=== PATIENT | female | born 1940 | race African-American/Black ===

== ENCOUNTER 2017-05-03 19:41 | Emergency (ER) | payer MEDICARE, OTHER ==
[~2017-05-03] VITALS: Ht 165.1 cm; Wt 70.0 kg
[~2017-05-03 19:41] MED LIST: ATENOLOL50 MG PO; HCTZ 25MG25 MG PO; MOTRIN 800800 MG/TAB PO; NICODERM C14 MG/PATC TOP; POTASSIUM CH2 MEQ/ML PO; SYNTHROID0.05 MG PO; TYLENOL PM EXTR1 TA1 PO
[2017-05-03 19:50] VITALS: TEMP 98.5
[2017-05-03] MEDS ORDERED: SYNTHROID0.125 MG/T PO (19:54)
[2017-05-03] MEDS ORDERED: TYLENOL 8 HR PO (20:12)
[2017-05-03] MEDS ORDERED: MEDROL 4MG DOSPA4 MG PO (20:29)
[2017-05-03] MEDS ORDERED: NORCO 325 MG-51 TAB PO (20:29)
[2017-05-03 20:44] VITALS: BP 158/78; PULSE 70
== END 2017-05-03 21:12 | disposition home or self-care (01) ==
LOC: COL.ER 19:41
DX: M79.2 Neuralgia and neuritis, unspecified (principal); R51 Headache; I10 Essential (primary) hypertension
CPT/HCPCS: J7512

== ENCOUNTER 2019-01-23 02:14 | Inpatient (IN) | payer MEDICARE, OTHER ==
--- NOTE | 2019-01-22 04:45 | NUR ---
Pt arrived on medical floor to room 353 along with granddaughter. Pt transferred from bed to bed with standby assist. Pt has no c/o pain. Assessment completed. Dr. Greene will be consulted in the morning for this pt. Pt has been oriented to the room. No further concern. Call light and personal belongings within reach.
[~2019-01-23] VITALS: Ht 165.1 cm; Wt 69.0 kg
[~2019-01-23 02:14] MED LIST changes: +MEDROL 4MG DOSPA4 MG PO; +NORCO 325 MG-51 TAB PO; +SYNTHROID0.125 MG/T PO; +TYLENOL 8 HR PO
[2019-01-23 02:42] LABS: BASO # 0.1 (0.0-0.2); BASO % 0.6 % (0.0-2.0); EOS % 0.1 % (0-4.0); GRAN % 72.9 % (42.2-75.2); HEMOGLOBIN 13.2 g/dl (12.5-16.0); LYMPH # 1.4 (1.2-3.4); LYMPH % 14.6 % (20.0-51.0); MEAN CELL VOLUME 78 fl (80.0-100.0); MEAN CORPUSCULAR HEMOGLOBIN 25 pg (27.0-31.0); MEAN CORPUSCULAR HGB CONC 32 g/dl (33.0-37.0); MEAN PLATELET VOLUME 11.1 fl (7.4-10.4); MONO # 1.1 (0.1-0.6); MONO % 11.4 % (1.7-9.3); PLATELET COUNT 150 K/mm3 (130-400); RED BLOOD COUNT 5.29 M/mm3 (4.10-5.30); REDCELL DISTRIBUTION WIDTH-CV 14.3 % (11.5-14.5)
[2019-01-23 02:56] LABS: BILIRUBIN,TOTAL 1.1 mg/dL (0.0-1.0); CALCIUM 8.1 mg/dL (8.4-10.2); CREATININE, serum 1.48 (0.52-1.25); MAGNESIUM 1.1 mg/dL (1.6-2.3); POTASSIUM 3.5 mmol/L (3.4-5.0); TOTAL PROTEIN 7.5 gm/dL (6.4-8.2)
[2019-01-23 03:20] LABS: TROPONIN-I 0.215 ng/mL (0.000-0.035)
[2019-01-23] MEDS ORDERED: PROAIR HFA0.09 MG/AC IH (03:42)
[2019-01-23] MEDS ORDERED: RT ADVAIR 128 DISKUS IH (03:42)
[2019-01-23 05:52] VITALS: BP 95/41; PULSE 70; TEMP 98.7
--- NOTE | 2019-01-23 07:00 | NUR ---
Dr. Greene has been consulted, he has added daily plavix and aspirin to her medication. Report has been given to CONSTANCE Figueroa. No further concerns at this time.
[2019-01-23] MEDS ORDERED: CLARITIN 1010 MG/TAB PO (07:43)
[2019-01-23 08:09] VITALS: BP 106/40; PULSE 72; TEMP 98.1
--- NOTE | 2019-01-23 08:31 | NUR ---
Patient resting in bed, supportive family at bedside. rounded. Ivf to Lac. Patient breathing wheezy. Denies SOB at rest, O2 3L. Tele on NSR. Patient report the augmentin, Dr. Matthews placed her on did give her loose stools. He flu swab was negaive at his office. She denies pain. Questions about her low BP. We discussed
--- NOTE | 2019-01-23 09:40 | NUR ---
Patient given new medication plavix, we reviewed & gave print out in new medication with use, side effects ect.
--- NOTE | 2019-01-23 12:49 | NUR ---
Lining Baster offered prayer and support with patient while family was in room.
[2019-01-23 12:51] VITALS: BP 103/41; PULSE 68; TEMP 98.1
[2019-01-23 14:51] VITALS: BP 108/47
--- NOTE | 2019-01-23 17:21 | NUR ---
Patient resting in in bed. She reports headache pain improved after tylenol & coffee. She did have episode or nausea/upset stomach. Zofran given per orders. Iv to Int. Vss on 2L. Indepdendent to the bathroom, voiding.
[2019-01-23 18:24] VITALS: BP 106/53; PULSE 73
[2019-01-24 00:01] VITALS: BP 117/54; PULSE 98; TEMP 98.9
[2019-01-24 04:29] VITALS: BP 91/39; PULSE 88; TEMP 98.5
--- NOTE | 2019-01-24 04:58 | NUR ---
Pt resting in bed. No c/o pain or discomfort. Pt slightly hypotensive, will continue to monitor.
[2019-01-24 07:41] VITALS: BP 99/43; PULSE 95; TEMP 98.3
[2019-01-24 07:41] LABS: CALCIUM 7.9 mg/dL (8.4-10.2); CREATININE, serum 1.37 (0.52-1.25); MAGNESIUM 1.8 mg/dL (1.6-2.3); POTASSIUM 3.7 mmol/L (3.4-5.0)
[2019-01-24 07:51] LABS: BASO % 0.1 % (0.0-2.0); GRAN # 9.9 (1.4-6.5); GRAN % 80.7 % (42.2-75.2); HEMATOCRIT 39.6 % (37.0-47.0); HEMOGLOBIN 12.5 g/dl (12.5-16.0); LYMPH # 1.2 (1.2-3.4); LYMPH % 9.6 % (20.0-51.0); MEAN CELL VOLUME 79 fl (80.0-100.0); MEAN CORPUSCULAR HEMOGLOBIN 25 pg (27.0-31.0); MEAN CORPUSCULAR HGB CONC 32 g/dl (33.0-37.0); MEAN PLATELET VOLUME 11.6 fl (7.4-10.4); MONO # 1.1 (0.1-0.6); MONO % 9.1 % (1.7-9.3); PLATELET COUNT 145 K/mm3 (130-400); RED BLOOD COUNT 5.04 M/mm3 (4.10-5.30); REDCELL DISTRIBUTION WIDTH-CV 14.2 % (11.5-14.5)
[2019-01-24 07:56] LABS: TROPONIN-I 0.143 ng/mL (0.000-0.035)
--- NOTE | 2019-01-24 08:00 | NUR ---
Patient sitting up in bed, A&Ox4, denies pain and discomfort. Grandson at the bedside. VSS. BP hyportensive, HR tachycardic telmetry on chest. 4L NC O2, no reported SOB. IV CDI. No further need expressed from patiet. Call light within reach
[2019-01-24 11:53] VITALS: BP 120/51; PULSE 83; TEMP 98.9
--- NOTE | 2019-01-24 17:25 | NUR ---
Patient had an uneventful day. Has been walking independently to the bathroom or family has been in the room with the patient. Denies pain, discomfort and SOB. Is wanting to take a nap before dinner. VSS. IV CDI. No further needs expressed from patient. Call light within reach.
[2019-01-24 17:31] VITALS: BP 117/53; PULSE 83; TEMP 98.6
--- NOTE | 2019-01-24 19:06 | NUR ---
Report rcvd from CONSTANCE Smith.
[2019-01-24 20:35] VITALS: BP 109/50; PULSE 76; TEMP 98.3
[2019-01-25] VITALS (15 sets, daily range): BP systolic 94–120; BP diastolic 42–58; PULSE 74–103; TEMP 97.9–99.2
--- NOTE | 2019-01-25 05:00 | NUR ---
Patient in bed, awake. Denies pain. Still on oxymask per pt request. States she will call when she is ready to switch over to NC. Denies further needs at this time. Will continue to monitor.
--- NOTE | 2019-01-25 06:05 | NUR ---
Pt has c/o some dizziness, asked for assistance to the bathroom. Pt does not seem unstable. Pt returned to bed and is resting. Call light within reach. No other concerns at this time. Pt has had a generally quiet night. She has been NPO since midnight in preparation for her Lexiscan this morning.
[2019-01-25 08:00] LABS: BASO % 0.1 % (0.0-2.0); EOS % 0.1 % (0-4.0); GRAN # 9.3 (1.4-6.5); GRAN % 69.7 % (42.2-75.2); HEMATOCRIT 38.2 % (37.0-47.0); HEMOGLOBIN 11.9 g/dl (12.5-16.0); LYMPH # 2.5 (1.2-3.4); LYMPH % 18.8 % (20.0-51.0); MEAN CELL VOLUME 80 fl (80.0-100.0); MEAN CORPUSCULAR HEMOGLOBIN 25 pg (27.0-31.0); MEAN CORPUSCULAR HGB CONC 31 g/dl (33.0-37.0); MEAN PLATELET VOLUME 10.9 fl (7.4-10.4); MONO # 1.4 (0.1-0.6); MONO % 10.8 % (1.7-9.3); PLATELET COUNT 133 K/mm3 (130-400); RED BLOOD COUNT 4.79 M/mm3 (4.10-5.30); REDCELL DISTRIBUTION WIDTH-CV 14.2 % (11.5-14.5)
[2019-01-25 08:07] LABS: CALCIUM 7.8 mg/dL (8.4-10.2); CREATININE, serum 1.24 (0.52-1.25)
--- NOTE | 2019-01-25 09:30 | NUR ---
Pt down for stress test at this time.
--- NOTE | 2019-01-25 10:40 | NUR ---
Pt back from stress test at this time
--- NOTE | 2019-01-25 11:41 | NUR ---
Pt sitting in bed, denies pain, chest pain, N/V/D, dizziness. PT requesting coffee. Pt on 4L NC, satting at 94%. Denies SOB at this time. Morning medications administered prior to stress test. Atenolol held until after. LS diminished, HR irregular. LAC INT IV flushes w/o complications. No other concerns expressed at this time. Call light within reach.
--- NOTE | 2019-01-25 12:38 | NUR ---
orthos obtained. VILLEDA: , SI:106/58, ST:96/. Pt denied dizziness or lightheadedness at this time.
--- NOTE | 2019-01-25 19:30 | NUR ---
Shift assessment complete. Patient in room, dangling at bedside. Denies pain. States she is having diarrhea. which happens to her on/off at home, states she "has a sensitive stomach." Will notify Dr. Tuttle, pt requesting immodium. Denies further needs at this time. Will continue to monitor.
[2019-01-26] VITALS (299 sets, daily range): BP systolic 46–133; BP diastolic 13–72; PULSE 78–89; TEMP 98.6–99.1; O2SAT 79–100
--- NOTE | 2019-01-26 01:00 | NUR ---
Called to room by patient. States she is hot, doesn't feel well. Denies pain. Appears slightly disoriented. Oxygen found on the ground. 60% on room air. Oxygen placed back on via NC. Patient appeared to be mouth breathing, oxymask placed. Patient agreeable to plan, and would like the oxymask to stay on for a little while. RT notified. Patient a/o x3. 95% on 3L oxymask. Will continue to monitor.
--- NOTE | 2019-01-26 02:10 | NUR ---
Per pt, diarrhea has been "black" in color. This is the first time she has mentioned this. Given her hypotension, Dr. Tuttle to be notified. Patient asymptomatic.
[2019-01-26 06:42] LABS: CREATININE, serum 1.24 (0.52-1.25)
[2019-01-26 06:57] LABS: HEMOGLOBIN 10.3 g/dl (12.5-16.0); MEAN CELL VOLUME 80 fl (80.0-100.0); MEAN CORPUSCULAR HEMOGLOBIN 25 pg (27.0-31.0); MEAN CORPUSCULAR HGB CONC 31 g/dl (33.0-37.0); MEAN PLATELET VOLUME 12.5 fl (7.4-10.4); PLATELET COUNT 130 K/mm3 (130-400); RED BLOOD COUNT 4.15 M/mm3 (4.10-5.30); REDCELL DISTRIBUTION WIDTH-CV 13.9 % (11.5-14.5)
[2019-01-26 07:00] LABS: HEMATOCRIT 33.1 % (37.0-47.0)
--- NOTE | 2019-01-26 08:15 | NUR ---
BESSIE Pearce called to inform this nurse that patient was up to bathroom, requesting to see nurse, states she is feeling "dizzy and fuzzy and hot". BPs soft. Cold rag placed on pt forehead, pt laying back in bed. Denies dizziness while laying in bed, denies N/V, vision changes, SOB. Pt VSS other than soft BPs. YRIS Valadez notified of pt condition.
[2019-01-26 08:39] LABS: BAND 7 % (0-10); HYPOCHROMIA 1+; LYMPHOCYTE 13 % (20.0-51.0); MYELOCYTE 1 % (0-0); NEUTROPHILS 72 % (42.0-75.2); PLATELET ESTIMATE NORMAL (NORMAL)
--- NOTE | 2019-01-26 09:30 | NUR ---
Orthostatic BPs obtained. Abbasi: 82/48, Si: 133/72, St: 46/13. Unsure of the accuracy. Pt moving around a bit and unable to stand for entire standing BP. Pt started feeling lightheaded, assisted back to bed. NS started to LAC IV at 125ml/hr w/o complications. BP/diuretic and blood thinners on hold. Stool occult positive. GI consult placed and [place] notified. No other concerns expressed. Pt denies N/V, vision changes, SOB. Pt currently on 3L NC, satting mid to upper 90s. LS cta, heart RRR. Pulses strong. No diarrhea noted since prior episode before shift change. Pt NPO.
[2019-01-26 09:38] LABS: RETIC # 0.08 M/mm3 (0.02-0.16); RETIC % 1.8 % (0.5-3.52)
[2019-01-26 09:44] LABS: IRON,SERUM 99 ug/dL (35-150)
[2019-01-26 09:53] LABS: TOTAL IRON BINDING CAPACITY 288 ug/dL (265-497)
--- NOTE | 2019-01-26 10:40 | NUR ---
Pt down for EGD at this time.
--- NOTE | 2019-01-26 12:00 | NUR ---
Shift assessment complete at this time. Pt denies pain or any other discomforts. Vitals stable at this time post-procedure. Bed in low position, call light within reach, will continue to monitor.
--- NOTE | 2019-01-26 12:12 | NUR ---
Pt transferred to ICU #3, called to give report to CONSTANCE Zamorano.
[2019-01-26 14:02] LABS: HEMATOCRIT 30.2 % (37.0-47.0); HEMOGLOBIN 9.6 g/dl (12.5-16.0)
--- NOTE | 2019-01-26 15:07 | NUR ---
Firer Low Pressure met with patient, patient's daughter Tila (ph#[phone]), and patient's cousin Nitza (ph#[phone]) to discuss discharge planning. Patient lives in [place] with her daughter and grandchildren. Patient sees Dr. Matthews for primary care and has most of her medications mailed to her through [facility]. Patient also utilil[facility] for any other medication need. Patient reports she has a cane but does not use it often. Patient reports she will need home oxygen upon discharge and SW confirmed need with review of exercise oximetry. SW presented DME Choice Form and patient selected [facility]. Patient did not feel like signing choice form and requested daughter, Tila sign. CAROLA placed signed choice form in patient chart. CAROLA faxed referral including completed order for oxygen, facesheet, exercise oximetry, and H&P to [facility]. CAROLA spoke with [facility] who confirmed they received referral. Patient does not have Advance Directives and requested to complete DPOA-HC form. CAROLA assisted patient in filling out form. Patient states she wants to designate her daughter Tila and granddaughter Jessica. CAROLA provided witness signature along with CONSTANCE Mendez. CAROLA placed copy in chart and provided original and copies to patient. Patient plans to return home upon discharge. SW to continue to follow.
--- NOTE | 2019-01-26 15:46 | NUR ---
Director Of Digital Platforms spoke with Vanda at [facility] who advised to resend order and referral once discharge date is known. SW to continue to follow.
--- NOTE | 2019-01-26 16:00 | NUR ---
Shift reassessment complete at this time. No changes from previous assessment. Vitals stable at this time. Pt denies pain or any other discomfort. Bed in low position, call light within reach, will continue to monitor.
--- NOTE | 2019-01-26 19:33 | NUR ---
Bedside report given to CONSTANCE Martin.
--- NOTE | 2019-01-26 20:15 | NUR ---
Patient resting in bed; naps on and off. No complaints of pain at this time. Assisted to reposition. VS stable; will continue to monitor.
[2019-01-27] VITALS (496 sets, daily range): BP systolic 85–114; BP diastolic 44–57; PULSE 84–107; TEMP 98–99.1; O2SAT 82–100
--- NOTE | 2019-01-27 00:30 | NUR ---
Assisted up to bedside commode; gait steady and requires stand by assist only. No complaints at this time. Will continue to monitor.
--- NOTE | 2019-01-27 04:57 | NUR ---
Patient hypotensive with systolic BP's in the 80's; otherwise asymptomatic Patient has not had any stools this shift. Hospitalist notified; will obtain am labs and call hospitalist with results.
[2019-01-27 05:17] LABS: MEAN CELL VOLUME 80 fl (80.0-100.0); MEAN CORPUSCULAR HGB CONC 31 g/dl (33.0-37.0); MEAN PLATELET VOLUME 11.8 fl (7.4-10.4); PLATELET COUNT 110 K/mm3 (130-400); RED BLOOD COUNT 3.06 M/mm3 (4.10-5.30); REDCELL DISTRIBUTION WIDTH-CV 14.3 % (11.5-14.5)
[2019-01-27 05:20] LABS: HEMATOCRIT 24.5 % (37.0-47.0); HEMOGLOBIN 7.7 g/dl (12.5-16.0); MEAN CORPUSCULAR HEMOGLOBIN 25 pg (27.0-31.0)
--- NOTE | 2019-01-27 05:20 | NUR ---
Updated granddaughter via telephone regarding patient status; addressed all questions and concerns at this time.
[2019-01-27 05:28] LABS: CALCIUM 7.4 mg/dL (8.4-10.2); CREATININE, serum 1.06 (0.52-1.25); POTASSIUM 4.1 mmol/L (3.4-5.0)
[2019-01-27 05:39] LABS: BAND 11 % (0-10); HYPOCHROMIA 1+; LYMPHOCYTE 18 % (20.0-51.0); MICROCYTOSIS 1+; NEUTROPHILS 66 % (42.0-75.2); PLATELET ESTIMATE NORMAL (NORMAL)
--- NOTE | 2019-01-27 05:47 | NUR ---
Hospitalist updated regarding am hgb. Will administer 1 L fluid bolus then will follow-up with GI in the morning. Patient currenlty brushing teeth and watching TV in room. No complaints from patient at this time.
--- NOTE | 2019-01-27 06:10 | NUR ---
Dr. Flaherty here to see patient. Updated regarding drop in HGB and low BP's. No new orders at this time.
--- NOTE | 2019-01-27 07:56 | NUR ---
Report received from Veronica NOLASCO and care resumed.
--- NOTE | 2019-01-27 10:50 | NUR ---
Dr Lee in to see pt at this time.
[2019-01-27 11:25] LABS: HEMOGLOBIN 7.8 g/dl (12.5-16.0)
[2019-01-27 11:26] LABS: HEMATOCRIT 25.2 % (37.0-47.0)
--- NOTE | 2019-01-27 13:22 | NUR ---
Charter Representative attended clinical rounds with the team. SW to continue to follow.
[2019-01-27 17:18] LABS: HEMATOCRIT 24.5 % (37.0-47.0); HEMOGLOBIN 7.5 g/dl (12.5-16.0)
--- NOTE | 2019-01-27 19:04 | NUR ---
Report given to Veronica NOLASCO and care transfered.
--- NOTE | 2019-01-27 20:15 | NUR ---
Assessment complete; denies any shortness of breath, pain or dizziness at this time. VS stable. Family at bedside during assessment. All questions and concerns addressed. Will continue to monitor.
[2019-01-27 23:05] LABS: HEMATOCRIT 23.3 % (37.0-47.0); HEMOGLOBIN 7.2 g/dl (12.5-16.0)
[2019-01-28] VITALS (714 sets, daily range): BP systolic 102–122; BP diastolic 45–59; PULSE 87–99; TEMP 98–99.7; O2SAT 56–100
--- NOTE | 2019-01-28 01:50 | NUR ---
Reported some increased shortness of breath and feeling "warm". T 99.7 and 02 94% on 4L oxymask. Removed extra blanket and assisted with repositiong and raising head of bed. RT called to give PRN breathing treatment.
[2019-01-28 04:58] LABS: MEAN CELL VOLUME 81 fl (80.0-100.0); MEAN CORPUSCULAR HGB CONC 31 g/dl (33.0-37.0); MEAN PLATELET VOLUME 11.7 fl (7.4-10.4); PLATELET COUNT 125 K/mm3 (130-400); RED BLOOD COUNT 2.78 M/mm3 (4.10-5.30); REDCELL DISTRIBUTION WIDTH-CV 14.8 % (11.5-14.5)
[2019-01-28 04:59] LABS: HEMATOCRIT 22.6 % (37.0-47.0); MEAN CORPUSCULAR HEMOGLOBIN 25 pg (27.0-31.0)
[2019-01-28 05:10] LABS: CALCIUM 7.4 mg/dL (8.4-10.2); CREATININE, serum 1.02 (0.52-1.25); POTASSIUM 3.5 mmol/L (3.4-5.0)
[2019-01-28 05:24] LABS: BAND 14 % (0-10); LYMPHOCYTE 16 % (20.0-51.0); NEUTROPHILS 58 % (42.0-75.2); PLATELET ESTIMATE NORMAL (NORMAL)
[2019-01-28 05:25] LABS: HYPOCHROMIA 2+
[2019-01-28 09:07] LABS: COLLECTION METHOD CLEAN CATCH
[2019-01-28 09:20] LABS: MUCOUS Present /lpf; PH 5 (5-8); SQUAMOUS EPITHELIAL 0-2 /hpf; URINE APPEARANCE Clear; URINE BACTERIA None Seen /hpf; URINE BILIRUBIN Negative (NEGATIVE); URINE BLOOD 1+ (NEGATIVE); URINE COLOR Straw; URINE GLUCOSE Negative (NEGATIVE); URINE KETONE Negative (NEGATIVE); URINE LEUKOCYTE ESTERASE Negative (NEGATIVE); URINE NITRATE Negative (NEGATIVE); URINE PROTEIN(semi-quant) Negative (NEGATIVE); URINE RBC 0-2 /hpf; URINE UROBILINOGEN Negative (NEGATIVE)
[2019-01-28 11:14] LABS: HEMATOCRIT 25.2 % (37.0-47.0); HEMOGLOBIN 7.8 g/dl (12.5-16.0)
--- NOTE | 2019-01-28 16:42 | NUR ---
SPOKE WITH AND LIAM ARNDT REGARDING BLOOD ORDER. HAD PREVIOUSLY DISCUSSED TO HOLD THIS AM D\T 1100 HGB 7.8. LASIX GIVEN AND IVF DC'D. PT HAS PUT OUT ALMOST TWO LITERS AND BREATHING IS BETTER. CALLED LIAM AND WILL HOLD UNIT OF BLOOD LONG HGB STAYS ABOVE 7.
[2019-01-28 18:07] LABS: HEMATOCRIT 24.8 % (37.0-47.0); HEMOGLOBIN 7.8 g/dl (12.5-16.0)
--- NOTE | 2019-01-28 20:15 | NUR ---
Assessment complete; Denies any complaints at this time. Reminded patient that we will continue to trend H&H's. Will transfuse if less than 7. Patient understands and agrees. Will continue to monitor.
[2019-01-28 23:44] LABS: HEMATOCRIT 23.4 % (37.0-47.0); HEMOGLOBIN 7.4 g/dl (12.5-16.0)
[2019-01-29] VITALS (292 sets, daily range): BP systolic 111–130; BP diastolic 52–70; PULSE 92–100; TEMP 97.9–99; O2SAT 68–100
--- NOTE | 2019-01-29 02:12 | NUR ---
Assisted up to bedside commode; Required increased oxygent temporarily with exertion but able to reduce o2 back to baseline after returning to bed. Patient denies feeling short of breath. Currenlty 94% on 3L. Will continue to monitor.
[2019-01-29 06:20] LABS: MEAN CELL VOLUME 80 fl (80.0-100.0); MEAN CORPUSCULAR HGB CONC 31 g/dl (33.0-37.0); MEAN PLATELET VOLUME 12.4 fl (7.4-10.4); PLATELET COUNT 181 K/mm3 (130-400); RED BLOOD COUNT 3.24 M/mm3 (4.10-5.30); REDCELL DISTRIBUTION WIDTH-CV 15.1 % (11.5-14.5)
[2019-01-29 06:30] LABS: HEMATOCRIT 25.9 % (37.0-47.0); HEMOGLOBIN 8.1 g/dl (12.5-16.0); MEAN CORPUSCULAR HEMOGLOBIN 25 pg (27.0-31.0)
[2019-01-29 06:38] LABS: ALBUMIN 3.2 gm/dL (3.5-5.0); CALCIUM 8.1 mg/dL (8.4-10.2); CREATININE, serum 1.04 (0.52-1.25); MAGNESIUM 1.5 mg/dL (1.6-2.3); POTASSIUM 3.2 mmol/L (3.4-5.0); TOTAL PROTEIN 6.6 gm/dL (6.4-8.2)
--- NOTE | 2019-01-29 08:00 | NUR ---
PT HAVING INCREASED O2 DEMANDS AND SOB. DR ZIMMERMAN IN UNIT AND STATES HE WOULD LIKE TO SEE PATIENT. CONSULT PLACED FOR PULMONOLOGY. CHEST XRAY ORDERED.
[2019-01-29 08:36] LABS: BAND 26 % (0-10); HYPOCHROMIA 2+; LYMPHOCYTE 13 % (20.0-51.0); METAMYELOCYTE 1 % (0-0); NEUTROPHILS 53 % (42.0-75.2); PLATELET ESTIMATE NORMAL (NORMAL)
[2019-01-29 08:37] LABS: TARGET CELLS 1+
--- NOTE | 2019-01-29 11:08 | NUR ---
PERIPHERAL IV TO LEFT AC BEGAN LEAKING AND PT C/O STINGING. 20G PERIPHERAL IV INSERTED TO RIGHT AC. IV TO LEFT AC DISCONTINUED.
--- NOTE | 2019-01-29 11:15 | NUR ---
Initial visit; Patient thanked Lot Attendant for looking in on her and offering prayer and God's blessings.
--- NOTE | 2019-01-29 13:21 | NUR ---
Yard Person attended clinical rounds with the team. Patient to transfer to Medical Floor today. Patient will need updated exercise oximetry upon discharge. Updated exercise oximetry will need to be sent to patient's DME choice, [facility].
--- NOTE | 2019-01-29 18:30 | NUR ---
INCENTIVE SPIROMETER OBTAINED FOR PATIENT AND EDUCATION PERFORMED. I HAD REMINDED RT ABOUT IS BUT THEY DID NOT OBTAIN IS. PATIENT TRANSFERRED VIA WHEELCHAIR TO MEDICAL ROOM 317. PT'S BELONGINGS TRANSFERRED WITH PATIENT. ASSISTED PATIENT INTO BED, WARM BLANKET PROVIDED. O2 SET AT 4L NC. CONTACT MADE WITH MARCUS NOLASCO UPON TRANSFER.
--- NOTE | 2019-01-29 18:36 | NUR ---
Patient to room 317 by wheelchair from ICU. Patient is A&Ox4, denies pain and discomfort. Reporting being cold, warm blanket provided. IV CDI. Patient wanted all four bed rails up. No further needs expressed from patient. Call light within reach
--- NOTE | 2019-01-29 19:50 | NUR ---
[place]erport rcvd from CONSTANCE Smith. Pt is resting in bed upon bedside report. Transfer of care completed. Pt is oriented to automation analyst RN. Pt declines any needs at this time. Assessment complete, Vitals WNL. Call light and phone within pt reach. No further concerns at this time.
[2019-01-30 01:13] VITALS: BP 115/59; PULSE 85; TEMP 98.2
--- NOTE | 2019-01-30 02:32 | NUR ---
PT GETS UP TO USE RESTROOM PRIOR TO BS EVAL POST TX.
[2019-01-30 04:13] VITALS: BP 96/72; PULSE 98; TEMP 97.9
--- NOTE | 2019-01-30 04:47 | NUR ---
PT C/O BEING COLD. VITALS WNL. PT RESTING IN BED. NO CONCERNS OR COMPLAINTS. PT DOES WANT ALL FOUR BED RAILS UP IT MAKES HER FEEL SAFER. NO FURTHER CONCERNS AT THIS TIME.
--- NOTE | 2019-01-30 06:49 | NUR ---
Pt had an unremarkable night. Stated she slept well, and feels great. Pt says she is ready to go home. Upon review of Dr. Zapata's provider note, pt will need an exertional oximetry test prior to discharge and follow ups with Dr. Zapata for further testing to r/o COPD exacerbations vs. atelectasis. No further concerns with this pt. Call light within reach.
--- NOTE | 2019-01-30 07:15 | NUR ---
Received report from off going shift. Patient is awake and alert in her bed. Has questions regarding her next dose of antibiotic and when she will have blood drawn. Did notify of next antibioitic schedule time and also called lab to see if lab has been collected. It was reported that property management coordinator was on the floor obtaining samples. Did let patient know of this. Call liglht and personal items are within reach.
--- NOTE | 2019-01-30 07:38 | NUR ---
Report given to CONSTANCE Berg and CONSTANCE Kenney. Transfer of care complete.
[2019-01-30 09:17] VITALS: BP 115/54; PULSE 99; TEMP 98.3
[2019-01-30 10:27] LABS: MEAN CELL VOLUME 80 fl (80.0-100.0); MEAN CORPUSCULAR HGB CONC 31 g/dl (33.0-37.0); MEAN PLATELET VOLUME 12.3 fl (7.4-10.4); PLATELET COUNT 214 K/mm3 (130-400); REDCELL DISTRIBUTION WIDTH-CV 14.8 % (11.5-14.5)
[2019-01-30 10:38] LABS: HEMATOCRIT 23.1 % (37.0-47.0); HEMOGLOBIN 7.2 g/dl (12.5-16.0); MEAN CORPUSCULAR HEMOGLOBIN 25 pg (27.0-31.0)
[2019-01-30 10:42] LABS: CALCIUM 7.8 mg/dL (8.4-10.2); CREATININE, serum 1.08 (0.52-1.25); MAGNESIUM 1.5 mg/dL (1.6-2.3)
[2019-01-30 10:46] LABS: POTASSIUM 2.9 mmol/L (3.4-5.0)
[2019-01-30 13:01] VITALS: BP 91/71; PULSE 106; TEMP 98.9
[2019-01-30 13:55] LABS: ANISOCYTOSIS 1+; BAND 1 % (0-10); HYPOCHROMIA 3+; LYMPHOCYTE 9 % (20.0-51.0); MICROCYTOSIS 1+; NEUTROPHILS 86 % (42.0-75.2); PLATELET ESTIMATE NORMAL (NORMAL)
[2019-01-30 16:52] VITALS: BP 127/62; PULSE 104; TEMP 98.5
[2019-01-30 17:51] LABS: HEMATOCRIT 23.7 % (37.0-47.0); HEMOGLOBIN 7.6 g/dl (12.5-16.0)
--- NOTE | 2019-01-30 19:04 | NUR ---
Received patient results for repeat HgB and occult stool. Hgb has increased to 7.6 and stool was positive for blood. Did notify hospitalist and received instruction to call her with repeat K+ result and notify GI about the positive stool. Did place call to Dr. Villasenor and left message.
--- NOTE | 2019-01-30 19:30 | NUR ---
Rcvd report from CONSTANCE Berg. Pt is laying in bed watching TV during bedside report. Pt requests a form of sleep-aid for tonight. This RN will contact the sanitation supervisor provider for the request. Pt states that her anxiety has increased since she had a BM today that resembled the way her BM was the day her GI Bleed started. CONSTANCE Berg stated she had made a call to Dr. Villasenor for guidance on the situation. Will await call back from Dr. Villasenor. Assessment complete. Pt has no c/o pain or discomfort at this time. Will continue to monitor through the night.
--- NOTE | 2019-01-30 20:56 | NUR ---
Contacted Argentina Fernandez APRN regarding pt's anxiety about current status and the need for sleep. Informed JEMMA Elaine the pt has requested Melatonin for sleep tonight. JEMMA Elaine has ordered the pt 6mg of Melatonin PO, Now. No further concern during this interaction. Will inform pt of her new order for melatonin to assist with sleep. No other concerns at this time.
[2019-01-30 21:00] VITALS: BP 124/62; PULSE 103; TEMP 98.3
[2019-01-31] VITALS (11 sets, daily range): BP systolic 108–142; BP diastolic 55–71; PULSE 66–95; TEMP 97.5–98.9
--- NOTE | 2019-01-31 02:01 | NUR ---
Pt sleeping in bed. No concerns at this time. Call light within reach.
--- NOTE | 2019-01-31 05:48 | NUR ---
Pt has had a restful night. At start of shift, pt was anxious due to another positive stool occult. Contacted Dr. Villasenor who reassured that there will be 1-2 days of blood cleaning out of intestines after the cautery that took place. This made the patient ease up. The pt did request melatonin for sleep, contacted Argentina Fernandez APRN who promptly ordered some melatonin 6mg to aid the pt with sleep. This medication was effective as the pt slept very well through the night. Pt is happy with results of labs which made for a better night as it released some pressure from the pt. Pt's daughter, Tila called and received an update. No further concerns at this time. .
[2019-01-31 06:48] LABS: MEAN CELL VOLUME 79 fl (80.0-100.0); MEAN CORPUSCULAR HGB CONC 31 g/dl (33.0-37.0); PLATELET COUNT 236 K/mm3 (130-400); RED BLOOD COUNT 2.89 M/mm3 (4.10-5.30); REDCELL DISTRIBUTION WIDTH-CV 14.8 % (11.5-14.5)
[2019-01-31 06:59] LABS: ALBUMIN 2.9 gm/dL (3.5-5.0); BILIRUBIN,TOTAL 0.7 mg/dL (0.0-1.0); CALCIUM 7.7 mg/dL (8.4-10.2); CREATININE, serum 1.09 (0.52-1.25); POTASSIUM 3.8 mmol/L (3.4-5.0); TOTAL PROTEIN 6.2 gm/dL (6.4-8.2)
[2019-01-31 07:15] LABS: HEMATOCRIT 22.8 % (37.0-47.0); MEAN CORPUSCULAR HEMOGLOBIN 24 pg (27.0-31.0)
[2019-01-31 09:15] LABS: BAND 6 % (0-10); HYPOCHROMIA 2+; LYMPHOCYTE 17 % (20.0-51.0); NEUTROPHILS 70 % (42.0-75.2); NUCLEATED RED BLOOD CELL 1 (0-6); PLATELET ESTIMATE NORMAL (NORMAL); TARGET CELLS 1+
[2019-01-31 12:56] LABS: HEMATOCRIT 25.2 % (37.0-47.0); HEMOGLOBIN 7.8 g/dl (12.5-16.0)
[2019-01-31 13:00] LABS: INR 1.1 (0.8-3.0); PROTHROMBIN TIME 12.5 SECONDS (9.7-12.8)
--- NOTE | 2019-01-31 16:00 | NUR ---
Patient tolerated blood transfusion well, Vital signs stable, will recheck H&H as ordered
[2019-01-31 16:28] LABS: HEMATOCRIT 29.3 % (37.0-47.0); HEMOGLOBIN 9.4 g/dl (12.5-16.0)
[2019-02-01 04:05] VITALS: BP 116/62; PULSE 81; TEMP 98.5
--- NOTE | 2019-02-01 06:30 | NUR ---
RESTING QUIETLY. NO c/o PAIN. NO BLOODY STOOLS REPORTED.
[2019-02-01 07:15] VITALS: BP 125/63; PULSE 80; TEMP 98.6
[2019-02-01 07:30] LABS: MEAN CELL VOLUME 81 fl (80.0-100.0); MEAN CORPUSCULAR HGB CONC 31 g/dl (33.0-37.0); MEAN PLATELET VOLUME 11.9 fl (7.4-10.4); PLATELET COUNT 278 K/mm3 (130-400); RED BLOOD COUNT 3.44 M/mm3 (4.10-5.30); REDCELL DISTRIBUTION WIDTH-CV 14.6 % (11.5-14.5)
[2019-02-01 07:38] LABS: HEMATOCRIT 27.7 % (37.0-47.0); HEMOGLOBIN 8.7 g/dl (12.5-16.0); MEAN CORPUSCULAR HEMOGLOBIN 25 pg (27.0-31.0)
[2019-02-01 07:41] LABS: ALBUMIN 2.9 gm/dL (3.5-5.0); BILIRUBIN,TOTAL 0.9 mg/dL (0.0-1.0); CALCIUM 7.8 mg/dL (8.4-10.2); CREATININE, serum 1.05 (0.52-1.25); POTASSIUM 3.9 mmol/L (3.4-5.0); TOTAL PROTEIN 6.3 gm/dL (6.4-8.2)
[2019-02-01 08:45] LABS: BAND 6 % (0-10); LYMPHOCYTE 35 % (20.0-51.0); MYELOCYTE 1 % (0-0); NEUTROPHILS 56 % (42.0-75.2); NUCLEATED RED BLOOD CELL 4 (0-6); PLATELET ESTIMATE NORMAL (NORMAL); TARGET CELLS 1+
[2019-02-01 08:46] LABS: HYPOCHROMIA 2+; POLYCHROMASIA 1+; SCHISTOCYTES 1+
[2019-02-01 11:15] VITALS: BP 118/60; PULSE 94; TEMP 98.8
--- NOTE | 2019-02-01 13:43 | NUR ---
The patient is to tentatively discharge today, 02/01. An exercise oximetry has been ordered. SW met with the patient to review discharge plan and to discuss PT's recommendation of home health vs outpatient PT. The patient reports that she still plans to return home with her daughter and grandchildren. She states that she would prefer outpatient PT and to set up the appointment. CAROLA notified th patient's PA-C, Aissatou. SW awaiting the exercise oximetry and will continue to follow.
--- NOTE | 2019-02-01 14:36 | NUR ---
The patient qualified for continuous oxygen, 4 liters. CAROLA contacted and faxed the patient's oxygen order to Sana at [facility]. CAROLA to continue to follow.
[2019-02-01 15:29] VITALS: BP 126/63; PULSE 92; TEMP 98.3
[2019-02-01] MEDS ORDERED: OMNICEF 300MG300 MG PO (15:43)
[2019-02-01] MEDS ORDERED: NICODERM C21 MG/PATC TD (15:56)
[2019-02-01] MEDS ORDERED: PROTONIX 40MG T40 MG PO (16:04)
[2019-02-01] MEDS ORDERED: PREDNISONE10 MG PO (16:08)
--- NOTE | 2019-02-01 16:13 | NUR ---
[facility] delivered the portable oxygen to the patient's room. The patient is to discharge back home with her family today, 02/01. No additional needs at this time.
--- NOTE | 2019-02-01 16:30 | NUR ---
Patient discharging home, I discussed discharge order with them, instructed to take meds as prescribed, follow up with PCP and Pulm as we have scheduled for her, instructed to do outpatient Pt/Ot as ordered, instructed to have CBC drawn in 1 week, instructed to wear oxygen as ordered/ Medical supply has delviered portable O2 to hospital prior to discharge, IV and tele removed, leaving with her grandaughter, ASSET ACCOUNTANT escorted them out the door
== END 2019-02-01 16:30 | disposition home or self-care (01) | DRG 280 ==
LOC: COL.ER 02:14 → ICU 03:57 → MEDICAL 03:57 → ICU 01-26 12:24 → MEDICAL 01-29 18:37
PROVIDERS: Emergency Medicine; Internal Medicine; Internal Medicine Gastroenterology; Physician Assistant; Student in an Organized Health Care Education/Training Program; ADMIT Student in an Organized Health Care Education/Training Program
DX: I21.A1 Myocardial infarction type 2 (principal); J96.01 Acute respiratory failure with hypoxia; K25.4 Chronic or unspecified gastric ulcer with hemorrhage; D62 Acute posthemorrhagic anemia; I10 Essential (primary) hypertension; E03.9 Hypothyroidism, unspecified; J43.9 Emphysema, unspecified; I27.20 Pulmonary hypertension, unspecified; I08.1 Rheumatic disorders of both mitral and tricuspid valves; E83.42 Hypomagnesemia; E87.6 Hypokalemia; I95.1 Orthostatic hypotension; M54.12 Radiculopathy, cervical region; K29.70 Gastritis, unspecified, without bleeding; K44.9 Diaphragmatic hernia without obstruction or gangrene; F17.210 Nicotine dependence, cigarettes, uncomplicated; Z96.651 Presence of right artificial knee joint; Z90.710 Acquired absence of both cervix and uterus
CPT/HCPCS: 99222-AI; 99232-AI; 99233-AI; 99239; A4216; A9284; A9500; C9113; J0171; J0456; J0696; J1644; J1940; J2405; J2704; J2785; J2930; J3475; J7030; J7050; J7512; P9016; Q9967

== ENCOUNTER → 2019-04-06 | Outpatient (CLI) | payer MEDICARE, OTHER ==
[~2019-04-06] MED LIST changes: +CLARITIN 1010 MG/TAB PO; +NICODERM C21 MG/PATC TD; +OMNICEF 300MG300 MG PO; +PREDNISONE10 MG PO; +PROAIR HFA0.09 MG/AC IH; +PROTONIX 40MG T40 MG PO; +RT ADVAIR 128 DISKUS IH
== END ==
LOC: COL.VAS 14:38
DX: R60.0 Localized edema (principal)

== ENCOUNTER → 2019-07-27 | Outpatient (CLI) | payer MEDICARE, OTHER | LOC: COL.VAS 15:11 | DX: I27.20 Pulmonary hypertension, unspecified (principal) ==

== ENCOUNTER 2020-10-13 07:26 | Observation (INO) | payer MEDICARE, OTHER ==
[~2020-10-13] VITALS: Ht 165.1 cm; Wt 75.0 kg
[2020-10-13 08:25] LABS: INR 1.1 (0.8-3.0); PROTHROMBIN TIME 12.1 SECONDS (9.7-12.8)
[2020-10-13 08:27] LABS: PARTIAL THROMBOPLASTIN TIME 26.7 SECONDS (26.0-37.0)
[2020-10-13 08:29] LABS: ALBUMIN 4.2 gm/dL (3.5-5.0); BILIRUBIN,TOTAL 0.7 mg/dL (0.0-1.0); CALCIUM 8.9 mg/dL (8.4-10.2); CREATININE, serum 1.24 (0.52-1.25); POTASSIUM 3.8 mmol/L (3.4-5.0); TOTAL PROTEIN 7.8 gm/dL (6.4-8.2)
[2020-10-13 08:44] LABS: BASO # 0.1 (0.0-0.2); BASO % 0.6 % (0.0-2.0); EOS # 0.3 (0.0-0.7); EOS % 2.1 % (0-4.0); GRAN # 6.4 (1.4-6.5); GRAN % 50.2 % (42.2-75.2); HEMATOCRIT 38.3 % (37.0-47.0); HEMOGLOBIN 11.9 g/dl (12.5-16.0); LYMPH # 4.9 (1.2-3.4); LYMPH % 38.2 % (20.0-51.0); MEAN CELL VOLUME 80 fl (80.0-100.0); MEAN CORPUSCULAR HEMOGLOBIN 25 pg (27.0-31.0); MEAN CORPUSCULAR HGB CONC 31 g/dl (33.0-37.0); MEAN PLATELET VOLUME 11.8 fl (7.4-10.4); MONO # 1.1 (0.1-0.6); MONO % 8.7 % (1.7-9.3); PLATELET COUNT 201 K/mm3 (130-400); RED BLOOD COUNT 4.77 M/mm3 (4.10-5.30); REDCELL DISTRIBUTION WIDTH-CV 13.8 % (11.5-14.5)
[2020-10-13] MEDS ORDERED: TRELEGY ELLIPT1 EACH IH (12:14)
[2020-10-13] MEDS ORDERED: TENORMIN 2525 MG/TAB PO (12:23)
[2020-10-13] MEDS ORDERED: LASIX 20MG TABL20 MG PO (12:24)
--- NOTE | 2020-10-13 13:40 | NUR ---
Pt just arrived to the floor from endoscopy. She is alert and oriented with no pain complaints. Pt does still have some bloody output, put on brief. Pts daughter present in the room. Informed her that at this time there is not a diet in the computer for her to order anything to eat. Informed her that I would give the physician a call. Oriented her to her room, call light within reach
[2020-10-13 14:00] VITALS: BP 144/79; PULSE 60
[2020-10-13 14:15] VITALS: BP 140/62; PULSE 64
[2020-10-13 14:30] VITALS: BP 156/68; PULSE 57
--- NOTE | 2020-10-13 15:24 | NUR ---
Pt slowly working on her lunch. She has been on the phone quite a bit. Her daughter has left at this time, stated that she would be back. VSS. No other needs verbalized, will continue to monitor
--- NOTE | 2020-10-13 16:48 | NUR ---
Pt is having bloody output. Pt is very concerned that it is a large amount. Informed her that when mixed with the water in the toilet, a little looks like a lot. Informed her that we will be monitoring her vital signs and asked if she is feeling dizzy. She stated she was not. Informed her to notify nursing if she does and to continue using the call light when she needs to use the restroom
[2020-10-13] MEDS ORDERED: KLOR-CON SPRIN10 MEQ PO (16:56)
[2020-10-13 19:40] VITALS: BP 120/54; PULSE 75; TEMP 98.4
--- NOTE | 2020-10-13 20:36 | NUR ---
Patient alert and oriented. Patient denies any pain or discomfort. Denies SOB, N/V, headache, dizziness or diarrhea at this time. Assisted patient to the bathroom. Assisted patient to the bathroom to void. Ambulates slow but steady gait. Stand-by assist provided. Voiding clear yellow urine. No bloody output from rectum noted at this time. Smear of blood on the brief noted. Changed to a new brief. Assisted patient back to the bed. Call light within reach. Will continue to monitor.
[2020-10-13 21:35] LABS: HEMATOCRIT 28.8 % (37.0-47.0); HEMOGLOBIN 9.2 g/dl (12.5-16.0)
[2020-10-13 23:40] VITALS: BP 131/52; PULSE 83; TEMP 98.4
[2020-10-14 03:37] VITALS: BP 115/45; PULSE 84; TEMP 98.6
--- NOTE | 2020-10-14 05:37 | NUR ---
Patient ambulates to the bathroom to void x4 over the night. No any rectal bleeding noted throughout the night. VS stable. Call light within reach. Will give report to day shift nurse.
[2020-10-14 07:23] LABS: MEAN CELL VOLUME 78 fl (80.0-100.0); MEAN CORPUSCULAR HGB CONC 32 g/dl (33.0-37.0); MEAN PLATELET VOLUME 12.5 fl (7.4-10.4); PLATELET COUNT 177 K/mm3 (130-400); REDCELL DISTRIBUTION WIDTH-CV 13.6 % (11.5-14.5)
[2020-10-14 07:29] LABS: HEMATOCRIT 27.2 % (37.0-47.0); HEMOGLOBIN 8.6 g/dl (12.5-16.0); MEAN CORPUSCULAR HEMOGLOBIN 25 pg (27.0-31.0)
[2020-10-14 07:30] VITALS: BP 143/57; PULSE 73; TEMP 98.4
--- NOTE | 2020-10-14 08:00 | NUR ---
Pt doing well this morning. She stated that she had a good night and slept well. Pt reports that she was up a few times to go to the restroom and there was no blood. Breakfast has arrived, no needs verbalized
--- NOTE | 2020-10-14 10:43 | NUR ---
Pt doing well. She has been up with therapy and walked in the halls. Dr Tuttle in to see pt, new orders wrote
--- NOTE | 2020-10-14 15:45 | NUR ---
Plans to return home where she resides with her DTR Tila Townsend locally. Patient reports that her daughter and granddaughter shares DPOA. PCP is Dr. Mulligan due to Dr. Huang snf. Patient indicated that she uses [facility] for medications and [facility] scripts for senior care. Patient reports that she uses Oxygen and has an O2 concentrater and portable O2 at 3-4 Liter served by [facility] [place]. Patient reports that she is also using a cane for mobility. Patient denies having any concerns with her care and is not in pain. Educated on service with case management. NF>
--- NOTE | 2020-10-14 16:42 | NUR ---
Pt doing well. She did have complaints of a headache earlier, tylenol given. Pt reports headache is gone. Pt is steady on her feet to the restroom, no complaints of feeling dizzy. Pts daughter did order her some supper, no needs verbalized, will continue to monitor.
[2020-10-14 17:08] VITALS: BP 131/71; PULSE 69; TEMP 98.3
--- NOTE | 2020-10-14 17:56 | NUR ---
Pt did not have any bloody stool today. She is up to the restroom independently. Pt tolerating general diet, minimal needs, call light within reach
[2020-10-14 19:28] VITALS: BP 133/55; PULSE 64; TEMP 98.1
--- NOTE | 2020-10-14 22:39 | NUR ---
PATIENT IS FAIR IN BED.DENIES PAIN.ON OXYGEN VIA NC AT 3L.ASSESSMENT DONE. NO OTHER NEEDS AT THIS TIME.
[2020-10-14 23:46] VITALS: BP 111/50; PULSE 69; TEMP 98.2
[2020-10-15 03:42] VITALS: BP 130/83; PULSE 67; TEMP 97.9
--- NOTE | 2020-10-15 04:34 | NUR ---
PATIENT HAD AN EVENTFUL NIGHT.PATIENT IS ON SUPPLEMENTAL OXYGEN VIA NC AT 3L.NO CONCERNS A THIS TIME.
[2020-10-15 06:43] LABS: HEMATOCRIT 28.6 % (37.0-47.0); HEMOGLOBIN 9.2 g/dl (12.5-16.0)
[2020-10-15 06:51] VITALS: BP 120/65; PULSE 79; TEMP 98
[2020-10-15] MEDS ORDERED: TYLENOL 325MG325 MG PO (08:58)
[2020-10-15] MEDS ORDERED: ROBITUSSIN DM 105 ML PO (08:59)
[2020-10-15] MEDS ORDERED: FLONASE NASAL S16 GM NS (08:59)
[2020-10-15] MEDS ORDERED: FERRO-TIME325 MG PO (09:01)
--- NOTE | 2020-10-15 10:15 | NUR ---
has been in to see patient, orders wrote for discharge. Pt stated that her ride would be here at 1100. INT removed from right AC.
--- NOTE | 2020-10-15 11:01 | NUR ---
Reviewed discharge instructions with pt to include follow up appointment and prescriptions. Pt escorted out at this time
== END 2020-10-15 11:02 | disposition home or self-care (01) ==
LOC: COL.ER 07:26 → SURG 10:21
PROVIDERS: Physician Assistant; Student in an Organized Health Care Education/Training Program; ADMIT Internal Medicine
DX: R19.5 Other fecal abnormalities (principal); K57.31 Diverticulosis of large intestine without perforation or abscess with bleeding; K44.9 Diaphragmatic hernia without obstruction or gangrene; I10 Essential (primary) hypertension; E03.9 Hypothyroidism, unspecified; J44.9 Chronic obstructive pulmonary disease, unspecified; J96.11 Chronic respiratory failure with hypoxia; Z98.0 Intestinal bypass and anastomosis status; Z79.890 Hormone replacement therapy; Z90.710 Acquired absence of both cervix and uterus; Z79.899 Other long term (current) drug therapy; Z87.891 Personal history of nicotine dependence
CPT/HCPCS: G0378; J2704; J7030; Q9967

== ENCOUNTER 2020-12-06 05:46 | Emergency (ER) | payer MEDICARE, OTHER ==
[~2020-12-06] VITALS: Ht 167.6 cm; Wt 75.0 kg
[~2020-12-06 05:46] MED LIST changes: +FERRO-TIME325 MG PO; +FLONASE NASAL S16 GM NS; +KLOR-CON SPRIN10 MEQ PO; +LASIX 20MG TABL20 MG PO; +ROBITUSSIN DM 105 ML PO; +TENORMIN 2525 MG/TAB PO; +TRELEGY ELLIPT1 EACH IH; +TYLENOL 325MG325 MG PO
[2020-12-06 05:47] VITALS: TEMP 98.7
[2020-12-06 06:01] LABS: BASO # 0.1 K/mm3 (0.0-0.2); BASO % 0.6 % (0.0-2.0); EOS # 0.2 K/mm3 (0.0-0.7); EOS % 1.7 % (0-4.0); GRAN # 5.3 K/mm3 (1.4-6.5); GRAN % 56.5 % (42.2-75.2); HEMOGLOBIN 10.9 g/dl (12.5-16.0); LYMPH % 31.7 % (20.0-51.0); MEAN CELL VOLUME 79 fl (80.0-100.0); MEAN CORPUSCULAR HEMOGLOBIN 24 pg (27.0-31.0); MEAN CORPUSCULAR HGB CONC 30 g/dl (33.0-37.0); MEAN PLATELET VOLUME 10.1 fl (7.4-10.4); MONO # 0.9 K/mm3 (0.1-0.6); MONO % 9.2 % (1.7-9.3); PLATELET COUNT 191 K/mm3 (130-400); RED BLOOD COUNT 4.57 M/mm3 (4.10-5.30); REDCELL DISTRIBUTION WIDTH-CV 13.9 % (11.5-14.5)
[2020-12-06 06:02] LABS: HEMATOCRIT 36.3 % (37.0-47.0)
[2020-12-06 06:19] LABS: ALBUMIN 3.7 gm/dL (3.4-4.8); C-REACTIVE PROTEIN 0.19 mg/dL (0.00-0.50); CREATININE, serum 1.42 mg/dL (0.57-1.11); POTASSIUM 4.2 mmol/L (3.5-4.5); TOTAL PROTEIN 7.4 gm/dL (6.2-8.1)
[2020-12-06 06:39] LABS: BILIRUBIN,TOTAL 0.8 mg/dL (0.2-1.2)
[2020-12-06 08:39] VITALS: BP 132/60; PULSE 72
== END 2020-12-06 08:39 | disposition home or self-care (01) ==
LOC: COL.ER 05:46
PROVIDERS: Emergency Medicine
DX: K92.2 Gastrointestinal hemorrhage, unspecified (principal); I10 Essential (primary) hypertension; J44.9 Chronic obstructive pulmonary disease, unspecified; E03.9 Hypothyroidism, unspecified; Z79.890 Hormone replacement therapy; Z79.899 Other long term (current) drug therapy
CPT/HCPCS: J7030; Q9967

== ENCOUNTER 2020-12-21 21:57 | Inpatient (IN) | payer MEDICARE, OTHER ==
[~2020-12-21] VITALS: Ht 167.6 cm; Wt 77.0 kg
[2020-12-21 22:36] LABS: BASO # 0.1 K/mm3 (0.0-0.2); BASO % 0.3 % (0.0-2.0); EOS # 0.1 K/mm3 (0.0-0.7); EOS % 0.3 % (0-4.0); GRAN # 13.9 K/mm3 (1.4-6.5); GRAN % 83.8 % (42.2-75.2); HEMOGLOBIN 11.2 g/dl (12.5-16.0); LYMPH # 1.5 K/mm3 (1.2-3.4); LYMPH % 8.8 % (20.0-51.0); MEAN CELL VOLUME 77 fl (80.0-100.0); MEAN CORPUSCULAR HEMOGLOBIN 24 pg (27.0-31.0); MEAN CORPUSCULAR HGB CONC 31 g/dl (33.0-37.0); MONO % 6.1 % (1.7-9.3); PLATELET COUNT 237 K/mm3 (130-400); RED BLOOD COUNT 4.74 M/mm3 (4.10-5.30); REDCELL DISTRIBUTION WIDTH-CV 14.3 % (11.5-14.5)
[2020-12-21 22:37] LABS: HEMATOCRIT 36.3 % (37.0-47.0)
[2020-12-21 22:39] LABS: MEAN PLATELET VOLUME 11.8 fl (7.4-10.4)
[2020-12-21 22:52] LABS: ALANINE AMINOTRANSFERASE 35 U/L (0-55); ALBUMIN 3.9 gm/dL (3.4-4.8); ALKALINE PHOSPHATASE 91 U/L (40-150); ANION GAP 15 mmol/L (7-16); AST,SGOT 34 U/L (5-34); BILIRUBIN,TOTAL 0.9 mg/dL (0.2-1.2); BLOOD UREA NITROGEN 20 mg/dL (10-20); CALCIUM 8.8 mg/dL (8.4-10.2); CARBON DIOXIDE 19 mmol/L (23-31); CHLORIDE 109 mmol/L (98-107); CREATININE, serum 1.54 mg/dL (0.57-1.11); GLUCOSE 179 mg/dL (70-99); SODIUM 143 mmol/L (136-145); TOTAL PROTEIN 8.1 gm/dL (6.2-8.1)
[2020-12-21 22:59] LABS: TROPONIN-I < 0.010 ng/mL (0.00-0.033)
[2020-12-21 23:11] LABS: ARTERIAL BLD GAS O2 SATURATION 95.3 % (92-100); ARTERIAL BLD GAS TCO2 CT 23.5; ARTERIAL BLOOD GAS BASE EXCESS -2.1 (-2-2); ARTERIAL BLOOD GAS HCO3 22.4 meq/L (22-26); ARTERIAL BLOOD GAS PCO2 37.4 mmHg (35-45); ARTERIAL BLOOD GAS PO2 77.1 mmHg (80-100)
[2020-12-22] VITALS (7 sets, daily range): BP systolic 100–116; BP diastolic 47–83; PULSE 72–91; TEMP 97.5–98.7
[2020-12-22 01:05] LABS: COLLECTION METHOD CLEAN CATCH
[2020-12-22 01:10] LABS: MUCOUS Present /lpf; PH 5 (5-8); SQUAMOUS EPITHELIAL 0-2 /hpf; URINE APPEARANCE Hazy; URINE BACTERIA None Seen /hpf; URINE BILIRUBIN Negative (NEGATIVE); URINE BLOOD 1+ (NEGATIVE); URINE COLOR Yellow; URINE GLUCOSE Negative (NEGATIVE); URINE KETONE Negative (NEGATIVE); URINE LEUKOCYTE ESTERASE Negative (NEGATIVE); URINE NITRATE Negative (NEGATIVE); URINE PROTEIN(semi-quant) Negative (NEGATIVE); URINE RBC 0-2 /hpf; URINE UROBILINOGEN Negative (NEGATIVE); URINE WBC 0-2 /hpf
--- NOTE | 2020-12-22 03:23 | NUR ---
PT ARRIVED FROM ER VIA CART. PT ABLE TO MOVE SELF INTO BED FROM CART. EXPRESSES AN URGENT NEED TO VOID BUT IS VERY SOB. OXYGEN IS ON 5L NC. KENDRA CARE COMPLETED ET PURE WICK PLACED. URINE IS PALE YELLOW ET CLEAR. PT IS INCONTINENT OF SMALL AMOUNT OF URINE. PT IS A&O X3 ET ANXIOUS, TACHYPNEIC. O2 SATS ARE 90-98%. PT DENIES PAIN, RESPIRATIONS SLOW AFTER SEVERAL MINUTES. PT IS ORIENTED TO FALL PRECAUTIONS, VISITOR POLICY ET CALL LIGHT. VERBALIZES UNDERSTANDING. LUNG SOUNDS ARE COARSE WITH EXP WHEEZES AUSCULTATED THROUGHOUT. PT IS ABLE TO VERIFY MEDICATIONS, MED REC COMPLETED.
[2020-12-22 06:18] LABS: HEMOGLOBIN 11.4 g/dl (12.5-16.0); MEAN CELL VOLUME 78 fl (80.0-100.0); MEAN CORPUSCULAR HEMOGLOBIN 24 pg (27.0-31.0); MEAN CORPUSCULAR HGB CONC 31 g/dl (33.0-37.0); MEAN PLATELET VOLUME 11.5 fl (7.4-10.4); PLATELET COUNT 214 K/mm3 (130-400); RED BLOOD COUNT 4.69 M/mm3 (4.10-5.30); REDCELL DISTRIBUTION WIDTH-CV 14.4 % (11.5-14.5)
--- NOTE | 2020-12-22 06:21 | NUR ---
PT REPORTS THAT BREATHING IS IMPROVED THIS MORNING, HAS SLEPT SOME. O2 ON @ 5L NC, RESPIRATIONS UNLABORED @ THIS TIME. PT HAS VOIDED 1000 ML PALE YELLOW URINE. PUREWICK IS IN PLACE. PT DENIES OTHER NEEDS @ THIS TIME. BED ALARM ON, CALL LIGHT WITHIN REACH.
[2020-12-22 06:29] LABS: HEMATOCRIT 36.5 % (37.0-47.0)
[2020-12-22 06:33] LABS: CALCIUM 9.2 mg/dL (8.4-10.2); CREATININE, serum 1.59 mg/dL (0.57-1.11); POTASSIUM 3.8 mmol/L (3.5-4.5)
[2020-12-22 06:46] LABS: TROPONIN-I 0.043 ng/mL (0.00-0.033)
--- NOTE | 2020-12-22 08:00 | NUR ---
ASSESSMENT COMPLETE. PT COOPERATIVE WITH CARES. PT VERY FRIENDLY. PT RESTING IN BED WITH HER GRANDSON BY HER SIDE. PT DENIES PAIN, PALPITATIONS, OR DIZZINESS. PT STATES SHE HAS NO OTHER NEEDS AT THIS TIME. CALL LIGHT IS WITHIN REACH.
--- NOTE | 2020-12-22 08:06 | NUR ---
CONSULT CALLED TO DR. RENE.
[2020-12-22 08:32] LABS: ANISOCYTOSIS 1+; BAND 40 % (0-10); HYPOCHROMIA 2+; LYMPHOCYTE 22 % (20.0-51.0); NEUTROPHILS 28 % (42.0-75.2); PLATELET ESTIMATE NORMAL (NORMAL)
--- NOTE | 2020-12-22 12:56 | NUR ---
Milk Delivery Driver met with patient to discuss discharge planning. Patient's grandson, Justin is at bedside. Patient lives in [place] and advised her daughter, Tila (ph#[phone]) lives with her. Patient sees Dr. Palmer for primary care and obtains medications from either [facility] by mail or [facility]. Patient has a walker and also home oxygen from [facility]. Patient reports independence with ADLS and states she will be returning home upon discharge. Patient has Advance Directives in EMR which designate her daughter, Tila and granddaughter, Jessica. PT/OT ordered for patient. Discharge Plan: Home
--- NOTE | 2020-12-22 14:48 | NUR ---
INFORMED DR. ECHOLS PT'S AEROBIC BLOOD CULTURE POSITIVE FOR STREPTOCOCCUS.
--- NOTE | 2020-12-22 17:29 | NUR ---
VERBAL ORDER FROM DR. BEEBE TO PUT IN DAILY CBC AND BMP.
--- NOTE | 2020-12-22 17:57 | NUR ---
PT RESTING IN BED. PT ASKED THAT BOTTOM RAIL OF BED BE RAISED SO THAT SHE DOESN'T FALL OUT OF BED. I PULL BOTTOM RAIL UP. PT'S GRANDSON AND DAUGHTER VISITED PT TODAY. OTHER THAN SOME MEDICATION CHANGES, PT HAD AN UNEVENTFUL DAY. PT STATES SHE HAS NO OTHER NEEDS AT THIS TIME. CALL LIGHT WITHIN REACH.
--- NOTE | 2020-12-22 20:45 | NUR ---
Initial shift assessment done- pleasant, alert/oriented, states having some arthritis pain to hands, would like some Tylenol and something to help her sleep tonight-- will call Rylee ARNDT for orders. Patient denies SOB at this time, o2 at 4.5L/nc. Iv fluids of NS at 75cc/hr
[2020-12-23 03:48] VITALS: BP 105/48; PULSE 80; TEMP 98.2
--- NOTE | 2020-12-23 06:20 | NUR ---
Quiet night- VSS, states had alot of dreams last night, no requests this morning
[2020-12-23 08:00] VITALS: BP 110/62; PULSE 76; TEMP 97.8
--- NOTE | 2020-12-23 08:00 | NUR ---
ASSESSMENT COMPLETE. PT COOPERTIVE WITH CARES. PT WANTS TO GET OUT OF BED AND INTO RECLINER AFTER BREAKFAST. I TOLD PT WE WOULD MAKE THAT HAPPEN. PT STATED SHE DIDN'T WANT MOST OF HER BREAKFAST. SHE SAID THE CUMMINGS WAS BURNT AND THE EGGS TASTED BAD. PT WAS EATING THE OATMEAL. I ASKED PT IF I COULD GET HER SOMETHING ELSE. SHE SAID NO, WHAT SHE HAD LEFT ON HER TRAY WOULD BE FINE. PT DENIES PAIN, PALPITATIONS OR DIZZINESS. PT STATES SHE HAS NO OTHER NEEDS AT THIS TIME. CALL LIGHT WITHIN REACH.
[2020-12-23 08:36] LABS: BASO % 0.2 % (0.0-2.0); GRAN # 19.2 K/mm3 (1.4-6.5); HEMOGLOBIN 10.2 g/dl (12.5-16.0); LYMPH # 1.2 K/mm3 (1.2-3.4); LYMPH % 5.4 % (20.0-51.0); MEAN CELL VOLUME 75 fl (80.0-100.0); MEAN CORPUSCULAR HEMOGLOBIN 24 pg (27.0-31.0); MEAN CORPUSCULAR HGB CONC 33 g/dl (33.0-37.0); MONO # 0.7 K/mm3 (0.1-0.6); MONO % 3.3 % (1.7-9.3); PLATELET COUNT 162 K/mm3 (130-400); REDCELL DISTRIBUTION WIDTH-CV 14.1 % (11.5-14.5)
[2020-12-23 08:43] LABS: HEMATOCRIT 31.3 % (37.0-47.0)
[2020-12-23 08:53] LABS: CALCIUM 8.6 mg/dL (8.4-10.2); CREATININE, serum 1.38 mg/dL (0.57-1.11); POTASSIUM 4.3 mmol/L (3.5-4.5)
[2020-12-23 11:47] VITALS: BP 136/63; PULSE 80; TEMP 98
--- NOTE | 2020-12-23 12:38 | NUR ---
Freight Elevator Erector offered prayer and support with patient.
[2020-12-23 15:33] VITALS: BP 149/71; PULSE 77; TEMP 98.2
--- NOTE | 2020-12-23 18:00 | NUR ---
PT VISITED BY HER SON AND GRANDSON TODAY. PT ABLE TO PERFORM BATHING AND TOILETING CARES INDEPENDENTLY WITH SOLUTIONS ARCHITECT GETTING PT THE SUPPLIES NEEDED. PT DID STATE SOME DIZZINESS WITH GETTING OFF THE TOILET, CALL LIGHT USED, BUT PT RECOVERED QUICKLY. PT UP IN RECLINER MOST OF DAY CROCHETING AND WATCHING TV OR TALKING WITH HER FAMILY. PT STATES SHE HAS NO OTHER CARES AT THIS TIME. CALL LIGHT WITHIN REACH.
[2020-12-23 20:11] VITALS: BP 140/63; PULSE 73; TEMP 97.7
--- NOTE | 2020-12-23 20:15 | NUR ---
Initial shift assessment done- requesting tylenol and melatonin for sleep- given,, denies pain or SOB, states no dizziness at this time. Wants to get some sleep. o2 at 4L/nc, drinking some of her Ensure at this time.
[2020-12-23 23:56] VITALS: BP 156/62; PULSE 80; TEMP 98.5
[2020-12-24 04:20] VITALS: BP 138/60; PULSE 76; TEMP 98
--- NOTE | 2020-12-24 05:59 | NUR ---
Did sleep for most of the night- VSS, no requests, denies dizziness this morning.
[2020-12-24] MEDS ORDERED: ASPIRIN E.C. 8181 MG PO (07:06)
[2020-12-24] MEDS ORDERED: OMNICEF 300MG300 MG PO (07:10)
[2020-12-24] MEDS ORDERED: PREDNISONE10 MG PO (07:10)
[2020-12-24 08:00] VITALS: BP 144/69; PULSE 67; TEMP 98.6
[2020-12-24 08:27] LABS: MEAN CELL VOLUME 76 fl (80.0-100.0); MEAN CORPUSCULAR HGB CONC 32 g/dl (33.0-37.0); PLATELET COUNT 193 K/mm3 (130-400); RED BLOOD COUNT 4.14 M/mm3 (4.10-5.30); REDCELL DISTRIBUTION WIDTH-CV 14.3 % (11.5-14.5)
[2020-12-24 08:29] LABS: CALCIUM 8.7 mg/dL (8.4-10.2); CREATININE, serum 1.22 mg/dL (0.57-1.11); POTASSIUM 4.3 mmol/L (3.5-4.5)
[2020-12-24 08:41] LABS: HEMATOCRIT 31.3 % (37.0-47.0); HEMOGLOBIN 9.9 g/dl (12.5-16.0); MEAN CORPUSCULAR HEMOGLOBIN 24 pg (27.0-31.0)
[2020-12-24 09:12] LABS: BAND 1 % (0-10); LYMPHOCYTE 5 % (20.0-51.0); NEUTROPHILS 90 % (42.0-75.2); PLATELET ESTIMATE NORMAL (NORMAL); TARGET CELLS 1+
[2020-12-24 09:14] LABS: HYPOCHROMIA 2+; MICROCYTOSIS 1+
--- NOTE | 2020-12-24 11:02 | NUR ---
ASSESSMENT COMPLETE. PT COOPERATIVE WITH CARES. PT RESTING IN BED FINISHING UP BREAKFAST. PT DID A BETTER JOB OF EAT MOST OF HER FOOD THIS MORNING. PT DENIES PAIN, PALPITATIONS OR DIZZINESS AT THIS TIME. PT EAGER TO GO HOME. PT STATES SHE HAS NO OTHER NEEDS AT THIS TIME. CALL LIGHT WITHIN REACH.
[2020-12-24 12:41] VITALS: BP 152/74; PULSE 68; TEMP 98
--- NOTE | 2020-12-24 13:45 | NUR ---
Alee recieved a phone call that the pt was discharging and needed HH services. Sw met with the pt who stated she did not need the services and declined CM services. The pt stated she had granddaughter who is aid and lots family support. Alee informed pt she would let them know that she has declined HH services. No other needs stated at this time.
--- NOTE | 2020-12-24 13:50 | NUR ---
PT DISCHARGED HOME WITH GRANDSON. JAIMEE LA ACCOMPANIED PT OUT TO ER ENTRANCE VIA WHEELCHAIR WITH O2. PT REFUSED HOME HEALTH SERVICES. PT STATED SHE HAS PLENTY OF FAMILY TO HELP HER. I WENT OVER DISCHARGE PAPERWORK WITH PT AND ANSWERED ALL CONCERNS SHE HAD. DISCHARGE PAPERWORK SIGNED.
== END 2020-12-24 13:45 | disposition home or self-care (01) | DRG 871 ==
LOC: COL.ER 21:57 → MEDICAL 12-22 01:11
PROVIDERS: Emergency Medicine; Internal Medicine Nephrology; Physician Assistant; ADMIT Internal Medicine
DX: A40.3 Sepsis due to Streptococcus pneumoniae (principal); J18.9 Pneumonia, unspecified organism; J96.21 Acute and chronic respiratory failure with hypoxia; J44.1 Chronic obstructive pulmonary disease with (acute) exacerbation; J44.0 Chronic obstructive pulmonary disease with (acute) lower respiratory infection; N17.9 Acute kidney failure, unspecified; E03.9 Hypothyroidism, unspecified; I12.9 Hypertensive chronic kidney disease with stage 1 through stage 4 chronic kidney disease, or unspecified chronic kidney disease; N18.32 Chronic kidney disease, stage 3b; D72.829 Elevated white blood cell count, unspecified; T38.0X5A Adverse effect of glucocorticoids and synthetic analogues, initial encounter; Z96.651 Presence of right artificial knee joint; Z87.891 Personal history of nicotine dependence
CPT/HCPCS: 99232-AI; 99233-AI; 99239; J0456; J0696; J1940; J2920; J2930; J7030; J7050

== ENCOUNTER 2020-12-24 14:49 | Emergency (ER) | payer MEDICARE, OTHER ==
[~2020-12-24] VITALS: Ht 167.6 cm; Wt 78.2 kg
[~2020-12-24 14:49] MED LIST changes: +ASPIRIN E.C. 8181 MG PO
[2020-12-24 15:08] VITALS: BP 191/74; PULSE 111
== END 2020-12-24 17:35 | disposition expired ==
LOC: COL.ER 14:49
DX: I46.9 Cardiac arrest, cause unspecified (principal); J44.9 Chronic obstructive pulmonary disease, unspecified; N18.9 Chronic kidney disease, unspecified; I25.10 Atherosclerotic heart disease of native coronary artery without angina pectoris; J18.9 Pneumonia, unspecified organism; Z79.899 Other long term (current) drug therapy
CPT/HCPCS: J0171